=== PATIENT | male | born 1955 | race Two or more races ===

== ENCOUNTER 2021-12-30 17:03 | Emergency (ER) | payer OTHER ==
[~2021-12-30] VITALS: Ht 177.8 cm; Wt 81.0 kg
[2021-12-30 17:14] VITALS: BP 136/85
[2021-12-30] MEDS ORDERED: FLUORESCEIN SOD OPTH TEST STRIP RIGHTEYE ONE (19:15)
[2021-12-30] MEDS ORDERED: TETRACAINE HCL 0.5% OPTH(EYE) SOLN 4ML RIGHTEYE ONE (19:15)
[2021-12-30] MEDS ORDERED: ERYTHROMY OPTH OINT 5mg/gm 1gm or 3.5gm tube OP ONE (19:45)
== END 2021-12-30 20:05 | disposition home or self-care (01) ==
LOC: ER 17:03 → EEVIPCON 17:03 → ER 20:05
DX: S05.01XA Injury of conjunctiva and corneal abrasion without foreign body, right eye, initial encounter (principal); H11.31 Conjunctival hemorrhage, right eye; W51.XXXA Accidental striking against or bumped into by another person, initial encounter; Y93.73 Activity, racquet and hand sports; Y92.89 Other specified places as the place of occurrence of the external cause; Y99.8 Other external cause status

== ENCOUNTER → 2023-03-07 | Outpatient (CLI) | payer OTHER | END | disposition home or self-care (01) | LOC: CT 08:42 → EEVIPCON 09:00 | PROVIDERS: ATTEND Surgery | DX: K80.20 Calculus of gallbladder without cholecystitis without obstruction (principal); N18.32 Chronic kidney disease, stage 3b; R91.1 Solitary pulmonary nodule; K57.30 Diverticulosis of large intestine without perforation or abscess without bleeding; I70.0 Atherosclerosis of aorta | CPT/HCPCS: 74176 ==

== ENCOUNTER → 2023-11-14 | Outpatient (CLI) | payer OTHER ==
[2023-09-27 09:56] LABS: Basophils # (auto) 0 10 ^3/uL (0-0.2); Basophils % (auto) 0.8 % (0.0-2.0); Eosinophils # (auto) 0.1 10 ^3/uL (0-0.8); Eosinophils % (auto) 2.8 % (0.0-7.0); Hematocrit 34.9 % (41.0-53.0); Hemoglobin 11.9 g/dL (13.5-17.5); Lymphocytes # (auto) 1.3 10 ^3/uL (0.4-5.4); Lymphocytes % (auto) 25.4 % (10.0-50.0); Mean Corpuscular Hemoglobin 31.9 pg (28.0-32.0); Mean Corpuscular Hgb Conc. 34.2 g/dL (32.0-36.0); Mean Corpuscular Volume 93.2 fL (80.0-100.0); Monocytes # (auto) 0.3 10 ^3/uL (0-1.3); Monocytes % (auto) 6.6 % (0.0-12.0); Neutrophils # (auto) 3.3 10 ^3/uL (1.6-8.6); Neutrophils % (auto) 64.4 % (37.0-80.0); Red Blood Cells 3.75 10^6/uL (4.5-5.90); Red Cell Distribution Width 12.8 % (11.8-14.3); White Blood Cell 5.1 10^3/uL (4.4-10.8)
[2023-09-27 10:00] LABS: Chloride 110 mmol/L (98-107); Potassium 4.7 mmol/L (3.5-5.1); Sodium 142 mmol/L (136-145)
[2023-09-27 10:01] LABS: Anion Gap 4 (5-15); Carbon Dioxide 28 mmol/L (20-30)
[2023-09-27 10:02] LABS: Calcium 9.4 mg/dL (8.5-10.1)
[2023-09-27 10:06] LABS: BUN/Creatinine Ratio 21.5 (10.0-20.0); Blood Urea Nitrogen 35 mg/dL (9-23); Glucose 94 mg/dL (74-106)
[~2023-11-14] MED LIST: IOHEXOL 300 MG/ML 100ML BOTTLE IJ ONE
[2023-11-14 09:42] LABS: Alanine Aminotransferase 16 U/L (7-40); Albumin 4.3 g/dL (3.2-4.8); Alkaline Phosphatase 73 U/L (46-116); Anion Gap 4 (5-15); Aspartate Aminotransferase 20 U/L (13-40); BUN/Creatinine Ratio 20.7 (10.0-20.0); Blood Urea Nitrogen 34 mg/dL (9-23); Calcium 9.3 mg/dL (8.7-10.4); Carbon Dioxide 28 mmol/L (20-30); Chloride 109 mmol/L (98-107); Glucose 90 mg/dL (74-106); Potassium 4.2 mmol/L (3.5-5.1); Sodium 141 mmol/L (136-145); Total Protein 6.8 g/dL (5.7-8.2)
== END | disposition home or self-care (01) ==
LOC: EEVIPCON 09-27 08:00 → XYW 09-27 08:45
DX: K57.30 Diverticulosis of large intestine without perforation or abscess without bleeding (principal); R16.0 Hepatomegaly, not elsewhere classified; D17.79 Benign lipomatous neoplasm of other sites
CPT/HCPCS: 36415; 74177; 80048; 80053; 85025; Q9967